=== PATIENT | female | born 1995 | race Caucasian/White ===

== ENCOUNTER 2021-03-11 08:39 | Emergency (ER) | payer OTHER ==
[~2021-03-11] VITALS: Ht 162.5 cm; Wt 47.6 kg
[~2021-03-11 08:39] MED LIST: ATARAX25 MG PO; BIRTH CONTROL1 EAC1 PO; MOTRIN400 MG PO; PREDNICOT20 MG PO
== END 2021-03-11 13:08 | disposition home or self-care (01) ==
LOC: ED 08:39
DX: S90.01XA Contusion of right ankle, initial encounter (principal); W17.81XA Fall down embankment (hill), initial encounter; Y93.89 Activity, other specified; Y92.89 Other specified places as the place of occurrence of the external cause; Y99.8 Other external cause status

== ENCOUNTER → 2021-05-18 | Outpatient (CLI) | payer OTHER ==
[2021-05-18 15:29] LABS: ALBUMIN 3.8 gm/dl (3.1-4.5); ALKALINE PHOSPHATASE 64 U/L (45-117); CPK 86 U/L (26-192); SGOT/AST 10 IU/L (3-35); SGPT/ALT 17 U/L (12-78); TOTAL PROTEIN 6.9 gm/dL (6.4-8.2)
[2021-05-18 15:35] LABS: THYROID STIM HORMONE (HS) 0.702 uIU/ml (0.358-4.75)
[2021-05-19 14:08] LABS: A/G RATIO 1.6 (0.7-1.7); ALBUMIN 4.2 g/dL (2.9-4.4); ALPHA-1-GLOBULIN 0.2 g/dL (0.0-0.4); ALPHA-2-GLOBULIN 0.5 g/dL (0.4-1.0); BETA GLOBULIN 0.9 g/dL (0.7-1.3); GLOBULIN, TOTAL 2.6 g/dL (2.2-3.9); M-SPIKE Not Observed g/dL (Not Observed); TOTAL PROTEIN, SERUM 6.8 g/dL (6.0-8.5)
[2021-05-19 15:07] LABS: SJOGREN ANTI-SS-A 0.2 AI (0.0-0.9); SJOREN AB, ANTI-SS-B <0.2 AI (0.0-0.9)
== END | disposition home or self-care (01) ==
LOC: LAB 14:26
PROVIDERS: ATTEND Psychiatry & Neurology Clinical Neurophysiology
DX: G60.0 Hereditary motor and sensory neuropathy (principal); R42 Dizziness and giddiness; R55 Syncope and collapse; G57.93 Unspecified mononeuropathy of bilateral lower limbs; Z79.899 Other long term (current) drug therapy

== ENCOUNTER 2023-01-17 14:10 | Emergency (ER) | payer OTHER ==
[~2023-01-17] VITALS: Ht 162.5 cm; Wt 49.9 kg
[2023-01-17] MEDS ORDERED: PREDNISONE50 MG PO ×2 (15:59→16:00)
== END 2023-01-17 16:14 | disposition home or self-care (01) ==
LOC: ED 14:10
DX: T63.441A Toxic effect of venom of bees, accidental (unintentional), initial encounter (principal); Y92.89 Other specified places as the place of occurrence of the external cause

== ENCOUNTER 2023-10-04 10:10 | Emergency (ER) | payer OTHER ==
[~2023-10-04] VITALS: Ht 162.5 cm; Wt 50.3 kg
[~2023-10-04 10:10] MED LIST changes: +PREDNISONE50 MG PO
[2023-10-04] MEDS ORDERED: Bacitracin Zinc 14 GM TUBE T ONE (11:35)
[2023-10-04] MEDS ORDERED: BACITRACIN28.4 GM T (12:00)
== END 2023-10-04 12:08 | disposition home or self-care (01) ==
LOC: ED 10:10
DX: S40.212A Abrasion of left shoulder, initial encounter (principal); S50.811A Abrasion of right forearm, initial encounter; M54.9 Dorsalgia, unspecified; M54.2 Cervicalgia; V49.9XXA Car occupant (driver) (passenger) injured in unspecified traffic accident, initial encounter; Y93.89 Activity, other specified; Y92.410 Unspecified street and highway as the place of occurrence of the external cause; Y99.8 Other external cause status